=== PATIENT | male | born 1965 | race Caucasian/White ===

== ENCOUNTER 2021-04-28 10:35 | Inpatient (IN) | payer BC ==
[~2021-04-28] VITALS: Ht 182.9 cm; Wt 108.5 kg
[2021-04-28] MEDS: amLODIPine 5 MG TAB PO SCH (09:00)
--- NOTE | 2021-04-28 11:03 | REP ---
INDICATION: CHEST PAIN. COMPARISON: None. FINDINGS: The technique utilized in obtaining the radiograph has magnified the cardiac silhouette and accentuated the interstitial markings. The superior mediastinal structures are midline. The cardiac silhouette is unremarkable in size, shape, and position. The diaphragmatic surfaces of the lungs are regular, and the costophrenic angles are clear. The pulmonary peralta are clear. The imaged osseous structures are intact. IMPRESSION: There is no acute cardiopulmonary disease. <Electronically signed by Kraig Fenton > 04/28/21 1100
[2021-04-28 11:12] LABS: HEMATOCRIT 45.4 % (42.0-52.0); HEMOGLOBIN 15.7 g/dl (13.5-17.5); LYMPH % 17.4 % (24.0-44.0); MEAN CORPUSCULAR HEMOGLOBIN 31.3 pg (27.0-33.0); MEAN CORPUSCULAR HGB CONC 34.6 g/dl (32.0-36.5); MEAN CORPUSCULAR VOLUME 90.4 fl (80.0-96.0); MONO % 7.7 % (2.0-8.0); NEUTROPHILS % 72.9 % (36.0-66.0); PLATELET COUNT, AUTOMATED 213 10^3/uL (150-450); RED BLOOD COUNT 5.02 10^6/uL (4.30-6.10); WHITE BLOOD COUNT 11.6 10^3/uL (4.0-10.0)
[2021-04-28 11:13] LABS: BASO % 0.3 % (0.0-1.0); EOS # 0.2 10^3/uL (0.0-0.5); EOS % 1.4 % (0.0-3.0); MONO # 0.9 10^3/uL (0.0-0.8); NEUTROPHILS # 8.5 10^3/uL (1.5-8.5)
[2021-04-28 11:36] LABS: BLOOD UREA NITROGEN 10 MG/DL (7-18); CALCIUM LEVEL 9.7 MG/DL (8.5-10.1); CARBON DIOXIDE LEVEL 30 MEQ/L (21-32); CHLORIDE LEVEL 98 MEQ/L (98-107); CK-MB VALUE MASS 1.3 NG/ML (<3.6); CPK CREATINE PHOSPHOKINASE 51 U/L (39-308); CREATININE FOR GFR 0.89 MG/DL (0.70-1.30); GLOMERULAR FILTRATION RATE > 60.0 (>56); GLUCOSE, FASTING 235 MG/DL (70-100); MB/CK RELATIVE INDEX 2.55 (< OR =4); POTASSIUM SERUM 4.4 MEQ/L (3.5-5.1); SODIUM LEVEL 133 MEQ/L (136-145); TROPONIN I < 0.02 NG/ML (< 0.10)
[2021-04-28] MEDS ORDERED: GI COCKTAIL 50ML BTL(HYOSCYAMINE/MAALOX/LIDOCAINE VISCOUS)(1:3:1) PO ONE (13:10)
[2021-04-28 13:46] LABS: ALBUMIN 4.1 GM/DL (3.2-5.2); ALT/SGPT 26 U/L (12-78); BILIRUBIN,DIRECT 0.3 MG/DL (0.0-0.2); BILIRUBIN,TOTAL 1.1 MG/DL (0.2-1.0); LIPASE 555 U/L (73-393); TOTAL PROTEIN 7.7 GM/DL (6.4-8.2)
--- NOTE | 2021-04-28 14:35 | REP ---
INDICATION: evaluate CBD. RUQ and epigastric tenderness. COMPARISON: None. TECHNIQUE: Real-time sonographic evaluation of right upper quadrant performed. FINDINGS: The gallbladder demonstrates no evidence of intraluminal sludge or calculi, wall thickening or pericholecystic fluid. There is a 3 mm gallbladder polyp. There is no intrahepatic or extrahepatic biliary dilatation, common bile duct measures 4 mm in maximum diameter. Liver demonstrates diffuse increased echotexture compatible with diffuse fibrofatty infiltration. Pancreas is not well evaluated due to overlying bowel gas. The right kidney demonstrates no hydronephrosis, with a normal size of 12.0 cm in length. No free fluid is seen. IMPRESSION: Gallbladder polyp 3 mm. No gallstones, gallbladder wall thickening or free fluid. No biliary dilatation. Diffuse fibrofatty infiltration of the liver. <Electronically signed by Abhijeet Del Toro > 04/28/21 [id number]
[2021-04-28] MEDS ORDERED: MORPHINE 2 MG/ML 1ML VIAL (J2270) IV ONE (16:20)
[2021-04-28] MEDS ORDERED: NS 1,000 ML IV ONE (16:20)
[2021-04-28 16:30] LABS: CK-MB VALUE MASS 1.3 NG/ML (<3.6); CPK CREATINE PHOSPHOKINASE 36 U/L (39-308); MB/CK RELATIVE INDEX 3.61 (< OR =4); TROPONIN I < 0.02 NG/ML (< 0.10)
[2021-04-28] MEDS ORDERED: MORPHINE 4 MG/ML 1ML VIAL/SYRINGE (J2270) IV ONE (17:35)
[2021-04-28] MEDS ORDERED: ASPI1TAB8 PO (18:39)
[2021-04-28] MEDS ORDERED: PLAV1TAB2 PO (18:39)
[2021-04-28] MEDS ORDERED: CARV6.25 PO (18:39)
[2021-04-28] MEDS ORDERED: ATOR80TA59 PO (18:39)
[2021-04-28] MEDS ORDERED: LISI20TA33 PO (18:39)
[2021-04-28] MEDS ORDERED: METF10004 PO (18:39)
[2021-04-28] MEDS ORDERED: HOME MED LIST COMPLETE! XX SCH (18:40)
[2021-04-28 19:08] LABS: CHOLESTEROL LEVEL 121 MG/DL (<200); HDL CHOLESTEROL 54 MG/DL (>40); LDL CHOLESTEROL 45 MG/DL (<100); NON-HDL-C 67 MG/DL; TRIGLYCERIDES LEVEL 109 MG/DL (<150)
--- NOTE | 2021-04-28 19:08 | HPEPDOC ---
[facility] Medical History & Physical Date of Admission Apr 28, 2021 Date of Service: Apr 28, 2021 History and Physical CHIEF COMPLAINT: " Pain in the middle of my stomach" HISTORY OF PRESENT ILLNESS: 55-year-old male with a past medical history of coronary artery disease (s/p stents), hypertension, hyperlipidemia, and diabetes presented to the emergency department with worsening epigastric pain. He began to experience epigastric pain approximately 4 days ago that has been increasing in severity. At this junction, he rated the pain 6/10. He cannot identify any aggravating or relieving factors. It is not associated with food consumption. He has not had similar pain before. No associated hematemesis, weight loss, and appetite changes. He has never had an upper endoscopy done before. There is no associated nausea, vomiting, and changes in bowel movement. He denied any chest pain, shortness of breath, palpitations, problems with urination and bowel movements. CODE STATUS was discussed he wishes to be full code. PAST MEDICAL HISTORY: As mentioned above PAST SURGICAL HISTORY: 1. Cardiac stent SOCIAL HISTORY: Denies use of smoking, drinking, and recreational drugs. FAMILY HISTORY: Coronary disease and father. ALLERGIES: Please see below. REVIEW OF SYSTEMS: 10 point review of system was negative except for what is noted in the HPI HOME MEDICATIONS: Please see below. PHYSICAL EXAMINATION: VITAL SIGNS: Please see below. General: Lying in bed, no acute distress Head/Neck/Throat: Trachea midline, mucous membranes moist Eyes: Sclera anicteric, no erythema or discharge appreciated bilaterally Thorax: Normal respiratory effort on room air, lungs clear to auscultation bilaterally, no wheezes/rales/rhonchi Cardiovascular: Normal rate, regular rhythm, normal S1, S2; no S3, S4, rubs/gallops/murmurs Abdomen: Bowel sounds present, soft, tenderness reported with epigastric palpation, no rebound tenderness appreciated Genitourinary: No CVA tenderness, no Charles in place Musculoskeletal: Moving all extremities, no edema Skin: Warm, dry Neurologic: AAOx3, speech fluent and goal-directed, no focal deficits, grossly intact LABORATORY DATA: See below. IMAGING: Please see imaging section MICROBIOLOGY: Please see below. ASSESSMENT/PLAN: 55-year-old male presented with progressive worsening 4 days of abdominal pain. #Abdominal pain -Epigastric pain with minimally elevated lipase of 555, low suspicion pancreatitis vs peptic ulcer disease -We will continue with IV fluids. -Protonix and Carafate -Obtain H. pylori antigen stool -Return to GI if symptoms do not resolve for possible endoscopy with biopsies #Coronary artery disease -Status post stents. Continue with aspirin, clopidogrel, carvedilol, and statin therapy #Hypertension -uncontrolled at this time. Continue with lisinopril, and carvedilol. Pain may also be contributing to elevated blood pressure. #Diabetes -We will hold oral diabetic medications (Metformin). Hypoglycemic protocol, Accu-Cheks, and sliding scale. #DVT prophylaxis -Lovenox. Vital Signs Vital Signs Date Time Temp Pulse Resp B/P (MAP) Pulse Ox O2 Delivery O2 Flow Rate FiO2 04/28/21 16:46 20 04/28/21 16:02 85 96 04/28/21 16:01 183/98 (126) 04/28/21 10:36 97.8 Room Air Laboratory Data Labs 24H Laboratory Tests 2 04/28/21 11:00: Immature Granulocyte % (Auto) 0.3, Neutrophils (%) (Auto) 72.9H, Lymphocytes (%) (Auto) 17.4L, Monocytes (%) (Auto) 7.7, Eosinophils (%) (Auto) 1.4, Basophils (%) (Auto) 0.3, Neutrophils # (Auto) 8.5, Lymphocytes # (Auto) 2.0, Monocytes # (Auto) 0.9H, Eosinophils # (Auto) 0.2, Basophils # (Auto) 0.0, Nucleated Red Blood Cells % (auto) 0.0, Anion Gap 5L, Glomerular Filtration Rate > 60.0, Calcium Level 9.7, Total Bilirubin 1.1H, Direct Bilirubin 0.3H, Aspartate Amino Transf (AST/SGOT) 12, Alanine Aminotransferase (ALT/SGPT) 26, Alkaline Phosphatase 108, Total Creatine Kinase 51, Creatine Kinase MB 1.3, Creatine Kinase MB Relative Index 2.55, Troponin I < 0.02, Total Protein 7.7, Albumin 4.1, Albumin/Globulin Ratio 1.1, Lipase 555H 04/28/21 15:44: Total Creatine Kinase 36L, Creatine Kinase MB 1.3, Creatine Kinase MB Relative Index 3.61, Troponin I < 0.02 CBC/BMP Laboratory Tests 04/28/21 11:00 Home Medications Scheduled Aspirin (Aspirin EC) 81 Mg Tablet.dr, 81 MG PO DAILY Atorvastatin Calcium (Atorvastatin Calcium) 80 Mg Tablet, 80 MG PO DAILY Carvedilol (Carvedilol) 6.25 Mg Tablet, 6.25 MG PO DAILY Clopidogrel Bisulfate (Plavix) 75 Mg Tablet, 75 MG PO DAILY Lisinopril (Lisinopril) 20 Mg Tablet, 20 MG PO DAILY Metformin HCl (Metformin HCl) 1,000 Mg Tablet, 1,000 MG PO BID Allergies Coded Allergies: No Known Allergies (Unverified , 04/28/21) A-FIB/CHADSVASC A-FIB History Current/History of A-Fib/PAF?: No HARVINDER ROBISON M.D. Apr 28, 2021 18:38
[2021-04-28] MEDS ORDERED: MORPHINE 2 MG/ML 1ML VIAL (J2270) IV PRN (19:10)
[2021-04-28] MEDS ORDERED: GLUCOSE 4GM CHEW TABLET PO PRN (19:10)
[2021-04-28] MEDS ORDERED: DEXTROSE 50% 50 ML SYRINGE IV PRN (19:10)
[2021-04-28] MEDS ORDERED: GLUCAGON INJ 1MG VIAL SC PRN (19:10)
[2021-04-28] MEDS ORDERED: MORPHINE 4 MG/ML 1ML VIAL/SYRINGE (J2270) IV PRN (19:10)
[2021-04-28 19:57] LABS: RSV AMPLIFICATION NEGATIVE (NEGATIVE)
[2021-04-28] MEDS ORDERED: HumaLOG INSULIN (NovoLOG) PER UNIT SC SCH (21:00)
[2021-04-28 21:20] VITALS: BP 153/98
[2021-04-28] MEDS: NS 0.45% 1,000 ML IV SCH (22:20)
[2021-04-28] MEDS: PANTOPRAZOLE 40MG VIAL (C9113 PER 1) IV SCH (22:20)
[2021-04-28] MEDS: SUCRALFATE SUSP 1GM/10ML UD PO SCH (22:20)
[2021-04-29 05:55] VITALS: BP 162/99
[2021-04-29 06:42] LABS: HEMATOCRIT 41.7 % (42.0-52.0); HEMOGLOBIN 14.4 g/dl (13.5-17.5); MEAN CORPUSCULAR HEMOGLOBIN 31.4 pg (27.0-33.0); MEAN CORPUSCULAR HGB CONC 34.5 g/dl (32.0-36.5); MEAN CORPUSCULAR VOLUME 90.8 fl (80.0-96.0); PLATELET COUNT, AUTOMATED 185 10^3/uL (150-450); RED BLOOD COUNT 4.59 10^6/uL (4.30-6.10); WHITE BLOOD COUNT 12.9 10^3/uL (4.0-10.0)
[2021-04-29] MEDS: ACETAMINOPHEN TAB 650MG DOSE (2X325MG) PO PRN ×2 (06:44→17:00)
[2021-04-29] MEDS: NS 0.45% 1,000 ML IV SCH (06:45)
[2021-04-29 07:11] LABS: ALBUMIN 3.4 GM/DL (3.2-5.2); ALT/SGPT 22 U/L (12-78); BILIRUBIN,TOTAL 1.3 MG/DL (0.2-1.0); BLOOD UREA NITROGEN 9 MG/DL (7-18); CALCIUM LEVEL 8.9 MG/DL (8.5-10.1); CARBON DIOXIDE LEVEL 29 MEQ/L (21-32); CHLORIDE LEVEL 101 MEQ/L (98-107); CREATININE FOR GFR 0.73 MG/DL (0.70-1.30); GLOMERULAR FILTRATION RATE > 60.0 (>56); GLUCOSE, FASTING 157 MG/DL (70-100); MAGNESIUM LEVEL 2.2 MG/DL (1.8-2.4); PHOSPHORUS LEVEL 2.5 MG/DL (2.5-4.9); POTASSIUM SERUM 4.7 MEQ/L (3.5-5.1); SODIUM LEVEL 137 MEQ/L (136-145); TOTAL PROTEIN 7.1 GM/DL (6.4-8.2)
[2021-04-29] MEDS: amLODIPine 5 MG TAB PO SCH (08:22)
[2021-04-29] MEDS: PANTOPRAZOLE 40MG VIAL (C9113 PER 1) IV SCH (08:23)
[2021-04-29] MEDS: SUCRALFATE SUSP 1GM/10ML UD PO SCH ×2 (08:23→13:20)
[2021-04-29] MEDS: HumaLOG INSULIN (NovoLOG) PER UNIT SC SCH ×2 (08:25→13:21)
[2021-04-29] MEDS ORDERED: ATORVASTATIN 20 MG TAB PO SCH (09:00)
[2021-04-29] MEDS ORDERED: ENOXAPARIN 40MG/0.4ML SYRINGE (J1650 PER 10MG) SC SCH (09:00)
[2021-04-29] MEDS ORDERED: ASPIRIN 81MG ENTERIC TABLET PO SCH (09:00)
[2021-04-29] MEDS ORDERED: CLOPIDOGREL 75 MG TAB PO SCH (09:00)
[2021-04-29] MEDS ORDERED: CARVedilol 6.25 MG TAB PO SCH (09:00)
[2021-04-29 11:31] LABS: LIPASE 339 U/L (73-393)
--- NOTE | 2021-04-29 12:01 | DS.PDOC ---
Discharge Summary General Date of Admission Apr 28, 2021 at 18:34 Date of Discharge 04/29/2021 Discharge Summary DISCHARGE DIAGNOSES: 1. Dyspepsia (possible gastritis versus peptic ulcer disease) COMPLICATIONS/CHIEF COMPLAINT: Pancreatitis. HOSPITAL COURSE: Mr. Zarate, is a 55-year-old male with a past medical history of coronary artery disease, hypertension, and nnk-[id number] diabetes mellitus who presented with worsening epigastric pain. He was noted to have leukocytosis, and elevated lipase (555) upon admission. Although, his lipase was elevated it was not 3 times the upper limit of normal therefore suspicion for pancreatitis was low. However, his symptoms were consistent with possible gastritis versus peptic ulcer disease. Patient was also explained the possibility of peptic ulcer disease causing irritation to the pancreas. Once he was placed on Protonix and Carafate there was resolution of his symptoms. Considering he did not have any alarming symptoms including weight loss, and hematochezia/dark stools the need for endoscopy was not required deemed emergent during hospitalization. He was asked to continue with Protonix 6 to 8 weeks; and was given Carafate. He was exp lained he should follow-up with his primary care physician for appropriate H. pylori antigen testing as this may also be contributing to his symptoms and can possibly lead to gastric cancer. He was also explained that he can follow-up with a enrichment assistant as outpatient for endoscopy where he could undergo gastric biopsies to rule out gastric carcinoma as well as H. pylori. He was in agreement for further gastroenterology work-up to be done as outpatient. At the time of discharge, patient was tolerating his regular diet and back to his baseline. Of note, patient did have leukocytosis but this was likely reactive. There is no signs and symptoms of infectious etiology. He is to have repeat blood work done with his primary care physician. Of note, patient was started on amlodipine and lisinopril was increased for better blood pressure control. DISCHARGE MEDICATIONS: Please see below. ALLERGIES: Please see below. PHYSICAL EXAMINATION ON DISCHARGE: VITAL SIGNS: Please see below. General: Lying in bed, no acute distress Head/Neck/Throat: Trachea midline, mucous membranes moist Eyes: Sclera anicteric, no erythema or discharge appreciated bilateral Thorax: Normal respiratory effort on room air, lungs clear to auscultation bilaterally, no wheezes/rales/rhonchi Cardiovascular: Normal rate, regular rhythm, normal S1, S2; no S3, S4, rubs/gallops/murmurs Abdomen: Bowel sounds present, soft/nontender/nondistended Genitourinary: No CVA tenderness, no Charles in place Musculoskeletal: Moving all extremities, no edema Skin: Warm, dry Neurologic: AAOx3, speech fluent and goal-directed, no focal deficits, grossly intact LABORATORY DATA: Please see below. IMAGING: PORTABLE CHEST X-RAY The technique utilized in obtaining the radiograph has magnified the cardiac silhouette and accentuated the interstitial markings. The superior mediastinal structures are midline. The cardiac silhouette is unremarkable in size, shape, and position. The diaphragmatic surfaces of the lungs are regular, and the costophrenic angles are clear. The pulmonary peralta are clear. The imaged osseous structures are intact. IMPRESSION: There is no acute cardiopulmonary disease. GALLBLADDER US FINDINGS: The gallbladder demonstrates no evidence of intraluminal sludge or calculi, wall thickening or pericholecystic fluid. There is a 3 mm gallbladder polyp. There is no intrahepatic or extrahepatic biliary dilatation, common bile duct measures 4 mm in maximum diameter. Liver demonstrates diffuse increased echotexture compatible with diffuse fibrofatty infiltration. Pancreas is not well evaluated due to overlying bowel gas. The right kidney demonstrates no hydronephrosis, with a normal size of 12.0 cm in length. No free fluid is seen. IMPRESSION: Gallbladder polyp 3 mm. No gallstones, gallbladder wall thickening or free fluid. No biliary dilatation. Diffuse fibrofatty infiltration of the liver. PROGNOSIS: Good ACTIVITY: [As tolerated]. DIET: cardiac diet ITEMS TO FOLLOWUP ON ON OUTPATIENT: 1. Follow-up with his primary care physician and enrichment assistant within a week DISCHARGE CONDITION: Stable TIME SPENT ON DISCHARGE: 25 minutes. Vital Signs/I&Os Vital Signs Date Time Temp Pulse Resp B/P (MAP) Pulse Ox O2 Delivery O2 Flow Rate FiO2 04/29/21 08:22 79 162/99 04/29/21 05:55 98.2 20 98 Room Air I&O- Last 24 Hours up to 6 AM 04/29/21 06:00 Intake Total 2380 ml Output Total 1000 ml Balance 1380 ml Laboratory Data Labs 24H Laboratory Tests 2 04/28/21 15:44: Total Creatine Kinase 36L, Creatine Kinase MB 1.3, Creatine Kinase MB Relative Index 3.61, Troponin I < 0.02, Triglycerides Level 109, Total Cholesterol 121, LDL Cholesterol 45, Non-HDL Cholesterol (LDL + VLDL) 67, Total HDL Cholesterol 54, Cholesterol/HDL Ratio 2.240 04/28/21 18:50: Coronavirus (COVID-19)(PCR) NEGATIVE, Influenza Type A (RT-PCR) NEGATIVE, Influenza Type B (RT-PCR) NEGATIVE, Respiratory Syncytial Virus (PCR) NEGATIVE 04/28/21 21:36: Bedside Glucose (Misc Panel) 149H 04/29/21 06:12: Nucleated Red Blood Cells % (auto) 0.0, Anion Gap 7L, Glomerular Filtration Rate > 60.0, Calcium Level 8.9, Phosphorus Level 2.5, Magnesium Level 2.2, Total Bilirubin 1.3H, Aspartate Amino Transf (AST/SGOT) 7, Alanine Aminotransferase (ALT/SGPT) 22, Alkaline Phosphatase 95, Total Protein 7.1, Albumin 3.4, Albumin/Globulin Ratio 0.9, Lipase 339 04/29/21 11:33: Bedside Glucose (Misc Panel) 176H CBC/BMP Laboratory Tests 04/29/21 06:12 FSBS Laboratory Tests Test 04/28/21 21:36 04/29/21 11:33 Range/Units Bedside Glucose (Misc Panel) 149 176 70-105 MG/DL Discharge Medications Scheduled Amlodipine Besylate (Amlodipine Besylate) 5 Mg Tablet, 5 MG PO DAILY Aspirin (Aspirin EC) 81 Mg Tablet.dr, 81 MG PO DAILY, (Reported) Atorvastatin Calcium (Atorvastatin Calcium) 80 Mg Tablet, 80 MG PO DAILY, (Reported) Carvedilol (Carvedilol) 6.25 Mg Tablet, 6.25 MG PO DAILY, (Reported) Clopidogrel Bisulfate (Plavix) 75 Mg Tablet, 75 MG PO DAILY, (Reported) Lisinopril (Lisinopril) 40 Mg Tablet, 1 TAB PO DAILY Metformin HCl (Metformin HCl) 1,000 Mg Tablet, 1,000 MG PO BID, (Reported) Pantoprazole Sodium (Pantoprazole Sodium) 40 Mg Tablet.dr, 40 MG PO DAILY Sucralfate (Sucralfate) 1 Gm/10 Ml Oral.susp, 1 GM PO QID Allergies Coded Allergies: No Known Allergies (Unverified , 04/28/21) HARVINDER ROBISON M.D. Apr 29, 2021 11:50
[2021-04-29] MEDS ORDERED: AMLO1TAB24 PO (12:06)
[2021-04-29] MEDS ORDERED: LISI40TA4 PO (12:06)
[2021-04-29] MEDS ORDERED: PANT40TA29 PO (12:06)
[2021-04-29] MEDS ORDERED: SUCR1ORA PO (12:06)
[2021-04-29 13:20] VITALS: BP 139/90
--- NOTE | 2021-04-29 13:47 | ECGEPIP ---
[facility] - ED Test Date: 2021-04-28 Pat Name: JOCELYNE HOUGH Department: Room: - Gender: Male [facility]: ALISHA : 1965 Requested By: MANA Garcia Order Number: [id number] Reading MD: Brittani Deluna Measurements Intervals [place] Rate: 81 P: 13 [place]: 154 QRS: 2 QRSD: 90 T: 15 QT: 362 QTc: 420 Interpretive Statements Normal sinus rhythm Anteroseptal infarct , age undetermined NSTTW abnormalities No prior Electronically Signed on 04-29-2021 13:47:55 EDT by Brittani Deluna
--- NOTE | 2021-04-29 13:52 | ECGEPIP ---
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
[2021-04-30] MEDS ORDERED: PANTOPRAZOLE 40MG VIAL (C9113 PER 1) IV SCH (09:00)
[2021-04-30] MEDS ORDERED: lisinopriL 40 MG TAB PO SCH (09:00)
== END 2021-04-29 17:40 | disposition home or self-care (01) | DRG 241 ==
LOC: M ED 10:35 → M ED INP 18:34 → ENRESERV 19:33 → M MS5PR 21:20
PROVIDERS: ADMIT Internal Medicine; ATTEND Internal Medicine
DX: K29.70 Gastritis, unspecified, without bleeding (principal); K27.9 Peptic ulcer, site unspecified, unspecified as acute or chronic, without hemorrhage or perforation; E11.9 Type 2 diabetes mellitus without complications; I25.10 Atherosclerotic heart disease of native coronary artery without angina pectoris; I10 Essential (primary) hypertension; Z79.82 Long term (current) use of aspirin; Z79.899 Other long term (current) drug therapy; E78.5 Hyperlipidemia, unspecified; Z95.2 Presence of prosthetic heart valve

== ENCOUNTER → 2022-01-09 | Outpatient (CLI) | payer BC ==
[~2022-01-09] MED LIST: AMLO1TAB24 PO; ASPI1TAB8 PO; ATOR80TA59 PO; CARV6.25 PO; LISI20TA33 PO; LISI40TA4 PO; METF10004 PO; PANT40TA29 PO; PLAV1TAB2 PO; SUCR1ORA PO
[2022-01-09 11:31] LABS: BLOOD UREA NITROGEN 9 MG/DL (7-18); CALCIUM LEVEL 8.9 MG/DL (8.5-10.1); CARBON DIOXIDE LEVEL 33 MEQ/L (21-32); CHLORIDE LEVEL 104 MEQ/L (98-107); CHOLESTEROL LEVEL 118 MG/DL (<200); CHOLESTEROL RISK RATIO 2.565 (<5); CREATININE FOR GFR 0.87 MG/DL (0.70-1.30); GLOMERULAR FILTRATION RATE > 60.0 (>56); GLUCOSE, FASTING 161 MG/DL (70-100); HDL CHOLESTEROL 46 MG/DL (>40); LDL CHOLESTEROL 45 MG/DL (<100); NON-HDL-C 72 MG/DL; POTASSIUM SERUM 5.2 MEQ/L (3.5-5.1); SODIUM LEVEL 139 MEQ/L (136-145); TRIGLYCERIDES LEVEL 133 MG/DL (<150)
[2022-01-09 12:20] LABS: MALB URINE SIEMENS 7.6 MG/L; MAU/CREAT RATIO 6.3 MCG/MG (0.0-30.0)
[2022-01-09 18:01] LABS: HEMOGLOBIN A1c 7.7 %
== END ==
LOC: M PLALAB 08:23
PROVIDERS: ATTEND Student in an Organized Health Care Education/Training Program
DX: E11.40 Type 2 diabetes mellitus with diabetic neuropathy, unspecified (principal)

== ENCOUNTER → 2022-05-06 | Outpatient (CLI) | payer BC ==
[2022-05-06 10:37] LABS: BASO % 0.4 % (0.0-1.0); EOS # 0.2 10^3/uL (0.0-0.5); EOS % 2.1 % (0.0-3.0); HEMATOCRIT 44.7 % (42.0-52.0); HEMATOCRIT 45.8 % (42.0-52.0); HEMOGLOBIN 15.4 g/dl (13.5-17.5); LYMPH % 27.9 % (24.0-44.0); MEAN CORPUSCULAR HEMOGLOBIN 32.3 pg (27.0-33.0); MEAN CORPUSCULAR HGB CONC 34.5 g/dl (32.0-36.5); MEAN CORPUSCULAR VOLUME 93.7 fl (80.0-96.0); MONO # 0.6 10^3/uL (0.0-0.8); MONO % 8.6 % (2.0-8.0); NEUTROPHILS # 4.3 10^3/uL (1.5-8.5); NEUTROPHILS % 60.9 % (36.0-66.0); PLATELET COUNT, AUTOMATED 188 10^3/uL (150-450); RED BLOOD COUNT 4.77 10^6/uL (4.30-6.10); WHITE BLOOD COUNT 7.1 10^3/uL (4.0-10.0)
[2022-05-06 11:20] LABS: MALB URINE SIEMENS 15.6 MG/L
[2022-05-06 11:25] LABS: ALT/SGPT 36 U/L (12-78); BLOOD UREA NITROGEN 15 MG/DL (7-18); CARBON DIOXIDE LEVEL 31 MEQ/L (21-32); CHLORIDE LEVEL 104 MEQ/L (98-107); CHOLESTEROL LEVEL 116 MG/DL (<200); CREATININE FOR GFR 0.85 MG/DL (0.70-1.30); GLOMERULAR FILTRATION RATE > 60.0 (>56); GLUCOSE, FASTING 143 MG/DL (70-100); HDL CHOLESTEROL 41 MG/DL (>40); NON-HDL-C 75 MG/DL; POTASSIUM SERUM 4.3 MEQ/L (3.5-5.1); SODIUM LEVEL 139 MEQ/L (136-145); TRIGLYCERIDES LEVEL 105 MG/DL (<150)
[2022-05-06 11:26] LABS: ALBUMIN 3.9 GM/DL (3.2-5.2); CHOLESTEROL RISK RATIO 2.829 (<5); FREE T4 1.15 NG/DL (0.76-1.46); LDL CHOLESTEROL 54 MG/DL (<100)
[2022-05-06 12:05] LABS: VITAMIN B12 LEVEL 308 PG/ML (247-911)
== END ==
LOC: M PLALAB 08:46
PROVIDERS: ATTEND Student in an Organized Health Care Education/Training Program
DX: I10 Essential (primary) hypertension (principal); E11.40 Type 2 diabetes mellitus with diabetic neuropathy, unspecified; R20.2 Paresthesia of skin

== ENCOUNTER → 2022-05-18 | Outpatient (CLI) | payer BC | LOC: M SLEEP HO 12:18 | PROVIDERS: ATTEND Student in an Organized Health Care Education/Training Program | DX: R06.83 Snoring (principal) ==

== ENCOUNTER → 2022-12-24 | Outpatient (CLI) | payer BC ==
[~2022-12-24] MED LIST changes: +CLOP75TA99 PO; -PLAV1TAB2 PO
[2022-12-24 14:53] LABS: ALBUMIN 4.2 G/DL (3.2-5.2); ALKALINE PHOSPHATASE 94 U/L (46-116); ALT/SGPT 38 U/L (7.0-40); AST/SGOT 26 U/L (<34); BILIRUBIN,TOTAL 1.3 MG/DL (0.3-1.2); BLOOD UREA NITROGEN 15 MG/DL (9-23); CALCIUM LEVEL 9.7 MG/DL (8.5-10.1); CARBON DIOXIDE LEVEL 32 MMOL/L (20-31); CHLORIDE LEVEL 102 MMOL/L (98-107); CHOLESTEROL LEVEL 129 MG/DL (<200); CHOLESTEROL RISK RATIO 2.72 (<5); CREATININE FOR GFR 0.77 MG/DL (0.70-1.30); GLOMERULAR FILTRATION RATE > 60.0 (>56); GLUCOSE, FASTING 125 MG/DL (60-100); HDL CHOLESTEROL 47.3 MG/DL (>40); LDL CHOLESTEROL 63.5 MG/DL (<100); NON-HDL-C 81.7 MG/DL; POTASSIUM SERUM 4.6 MMOL/L (3.5-5.1); SODIUM LEVEL 138 MMOL/L (136-145); TRIGLYCERIDES LEVEL 91 MG/DL (<150)
[2022-12-24 15:01] LABS: BASO % 0.3 % (0.0-1.0); EOS # 0.2 10^3/uL (0.0-0.5); EOS % 2.3 % (0.0-3.0); HEMATOCRIT 49.2 % (42.0-52.0); HEMOGLOBIN 16.5 g/dl (13.5-17.5); LYMPH # 2.2 10^3/uL (1.5-5.0); LYMPH % 33.2 % (24.0-44.0); MEAN CORPUSCULAR HEMOGLOBIN 31.4 pg (27.0-33.0); MEAN CORPUSCULAR HGB CONC 33.5 g/dl (32.0-36.5); MEAN CORPUSCULAR VOLUME 93.7 fl (80.0-96.0); MONO # 0.6 10^3/uL (0.0-0.8); MONO % 9.4 % (2.0-8.0); NEUTROPHILS # 3.6 10^3/uL (1.5-8.5); NEUTROPHILS % 54.6 % (36.0-66.0); PLATELET COUNT, AUTOMATED 209 10^3/uL (150-450); RED BLOOD COUNT 5.25 10^6/uL (4.30-6.10); WHITE BLOOD COUNT 6.5 10^3/uL (4.0-10.0)
[2022-12-24 15:14] LABS: HEMOGLOBIN A1c 7.7 % (4.0-6.0)
[2022-12-24 15:37] LABS: CREATININE, URINE 64.5 MG/DL; MALB URINE SIEMENS < 3.0 MG/L; MAU/CREAT RATIO 4.6 MCG/MG (0.0-30.0)
== END ==
LOC: M PLALAB 11:15
PROVIDERS: ATTEND Student in an Organized Health Care Education/Training Program
DX: E11.40 Type 2 diabetes mellitus with diabetic neuropathy, unspecified (principal); I10 Essential (primary) hypertension; Z13.220 Encounter for screening for lipoid disorders

== ENCOUNTER → 2023-01-21 | Outpatient (CLI) | payer BC | LOC: M RAD 09:02 | PROVIDERS: ATTEND Internal Medicine Critical Care Medicine | DX: Z12.2 Encounter for screening for malignant neoplasm of respiratory organs (principal); Z87.891 Personal history of nicotine dependence; R91.1 Solitary pulmonary nodule; I70.0 Atherosclerosis of aorta; I25.10 Atherosclerotic heart disease of native coronary artery without angina pectoris; I51.7 Cardiomegaly ==

== ENCOUNTER → 2023-02-24 | Outpatient (CLI) | payer BC | LOC: M CARPUL 09:21 | PROVIDERS: ATTEND Internal Medicine Critical Care Medicine | DX: I27.20 Pulmonary hypertension, unspecified (principal) ==

== ENCOUNTER 2023-04-07 09:48 | Day surgery (SDC) | payer BC ==
[~2023-04-07] VITALS: Ht 182.9 cm; Wt 103.9 kg
[~2023-04-07 09:48] MED LIST changes: +METF750T36 PO; +NS 1,000 ML IV ONE; +OCUVTAB8 PO; +STEG5TAB PO
[2023-04-07] MEDS ORDERED: propofoL 200 MG/20 ML VIAL As Ordered ONE ×3 (09:58→11:14)
[2023-04-07] MEDS ORDERED: LIDOCAINE 2% 100MG/5ML SDV (FOR ANES.) As Ordered ONE (10:05)
[2023-04-07 12:02] VITALS: BP 147/83; TEMP 96.4; O2SAT 98
== END 2023-04-07 12:10 | disposition home or self-care (01) ==
LOC: M OPP 09:48
PROVIDERS: ATTEND Surgery
DX: Z12.11 Encounter for screening for malignant neoplasm of colon (principal); Z86.010 Personal history of colon polyps; K64.0 First degree hemorrhoids; Z87.891 Personal history of nicotine dependence; Z79.02 Long term (current) use of antithrombotics/antiplatelets; Z79.82 Long term (current) use of aspirin; Z79.84 Long term (current) use of oral hypoglycemic drugs; Z79.899 Other long term (current) drug therapy

== ENCOUNTER → 2023-05-12 | Outpatient (CLI) | payer BC ==
[~2023-05-12] MED LIST changes: -NS 1,000 ML IV ONE
[2023-05-12 13:41] LABS: BASO % 0.3 % (0.0-1.0); EOS # 0.2 10^3/uL (0.0-0.5); HEMATOCRIT 45.5 % (42.0-52.0); HEMATOCRIT 45.7 % (42.0-52.0); HEMOGLOBIN 15.6 g/dl (13.5-17.5); LYMPH # 2.3 10^3/uL (1.5-5.0); MEAN CORPUSCULAR HGB CONC 34.1 g/dl (32.0-36.5); MEAN CORPUSCULAR VOLUME 93.6 fl (80.0-96.0); MONO # 0.6 10^3/uL (0.0-0.8); MONO % 10.6 % (2.0-8.0); NEUTROPHILS # 2.9 10^3/uL (1.5-8.5); NEUTROPHILS % 47.9 % (36.0-66.0); PLATELET COUNT, AUTOMATED 175 10^3/uL (150-450); RED BLOOD COUNT 4.88 10^6/uL (4.30-6.10)
[2023-05-12 14:04] LABS: HEMOGLOBIN A1c 7.6 % (4.0-6.0)
[2023-05-12 14:08] LABS: CREATININE, URINE 101.7 MG/DL; MAU/CREAT RATIO 5.8 MCG/MG (0.0-30.0)
[2023-05-12 14:14] LABS: ALBUMIN 3.9 G/DL (3.2-5.2); ALKALINE PHOSPHATASE 111 U/L (46-116); ALT/SGPT 39 U/L (7.0-40); AST/SGOT 21 U/L (<34); BILIRUBIN,TOTAL 0.8 MG/DL (0.3-1.2); BLOOD UREA NITROGEN 17 MG/DL (9-23); CALCIUM LEVEL 9.1 MG/DL (8.5-10.1); CARBON DIOXIDE LEVEL 32 MMOL/L (20-31); CHLORIDE LEVEL 107 MMOL/L (98-107); CREATININE FOR GFR 0.78 MG/DL (0.70-1.30); GLOMERULAR FILTRATION RATE > 60.0 (>56); GLUCOSE, FASTING 151 MG/DL (60-100); MAGNESIUM LEVEL 2.1 MG/DL (1.8-2.4); SODIUM LEVEL 141 MMOL/L (136-145); TOTAL PROTEIN 6.7 G/DL (5.7-8.2)
[2023-05-12 14:16] LABS: THYROID STIMULATING HORMONE 1.069 uIU/ML (0.55-4.78); VITAMIN B12 LEVEL 335 PG/ML (211-911)
== END ==
LOC: M PLALAB 08:56
PROVIDERS: ATTEND Student in an Organized Health Care Education/Training Program
DX: E11.40 Type 2 diabetes mellitus with diabetic neuropathy, unspecified (principal); I10 Essential (primary) hypertension; R20.2 Paresthesia of skin

== ENCOUNTER → 2023-05-12 | Outpatient (CLI) | payer BC | LOC: M PLAIMG 07:58 | PROVIDERS: ATTEND Internal Medicine Critical Care Medicine | DX: R91.1 Solitary pulmonary nodule (principal) ==

== ENCOUNTER → 2023-12-03 | Outpatient (CLI) | payer OTHER ==
[2023-12-03 13:03] LABS: BASO % 0.3 % (0.0-1.0); EOS # 0.2 10^3/uL (0.0-0.5); EOS % 2.4 % (0.0-3.0); HEMATOCRIT 47.2 % (42.0-52.0); HEMATOCRIT 47.5 % (42.0-52.0); HEMOGLOBIN 16.4 g/dl (13.5-17.5); LYMPH # 2.2 10^3/uL (1.5-5.0); LYMPH % 32.3 % (24.0-44.0); MEAN CORPUSCULAR HEMOGLOBIN 31.6 pg (27.0-33.0); MEAN CORPUSCULAR HGB CONC 34.5 g/dl (32.0-36.5); MEAN CORPUSCULAR VOLUME 91.5 fl (80.0-96.0); MONO # 0.6 10^3/uL (0.0-0.8); MONO % 9.2 % (2.0-8.0); NEUTROPHILS # 3.7 10^3/uL (1.5-8.5); NEUTROPHILS % 55.6 % (36.0-66.0); PLATELET COUNT, AUTOMATED 195 10^3/uL (150-450); RED BLOOD COUNT 5.19 10^6/uL (4.30-6.10); WHITE BLOOD COUNT 6.7 10^3/uL (4.0-10.0)
[2023-12-03 13:11] LABS: ERYTHROCYTE SEDIMENTATION RATE 14 mm/hr (0-20)
[2023-12-03 13:28] LABS: MALB URINE SIEMENS < 3.0 MG/L; MAU/CREAT RATIO 5.6 MCG/MG (0.0-30.0)
[2023-12-03 13:50] LABS: URIC ACID 4.3 MG/DL (3.7-9.2)
[2023-12-03 13:52] LABS: C REACTIVE PROTEIN QUANTITATIV < 0.40 MG/DL (<1.0)
[2023-12-03 13:54] LABS: ALKALINE PHOSPHATASE 123 U/L (46-116); ALT/SGPT 27 U/L (7.0-40); AST/SGOT 18 U/L (<34); BILIRUBIN,TOTAL 0.9 MG/DL (0.3-1.2); BLOOD UREA NITROGEN 15 MG/DL (9-23); CALCIUM LEVEL 9.2 MG/DL (8.5-10.1); CARBON DIOXIDE LEVEL 32 MMOL/L (20-31); CHLORIDE LEVEL 102 MMOL/L (98-107); CHOLESTEROL LEVEL 111 MG/DL (<200); CHOLESTEROL RISK RATIO 2.94 (<5); CREATININE FOR GFR 0.82 MG/DL (0.70-1.30); GLOMERULAR FILTRATION RATE > 60.0 (>56); GLUCOSE, FASTING 140 MG/DL (60-100); HDL CHOLESTEROL 37.7 MG/DL (>40); LDL CHOLESTEROL 48.1 MG/DL (<100); NON-HDL-C 73.3 MG/DL; POTASSIUM SERUM 4.9 MMOL/L (3.5-5.1); RHEUMATOID FACTOR QUANT < 3.5 IU/ML (<14); SODIUM LEVEL 138 MMOL/L (136-145); TESTOSTERONE 404 NG/DL (241-827); THYROID STIMULATING HORMONE 1.334 uIU/ML (0.55-4.78); TOTAL PROTEIN 6.7 G/DL (5.7-8.2); TRIGLYCERIDES LEVEL 126 MG/DL (<150)
[2023-12-03 13:55] LABS: FREE T4 1.08 NG/DL (0.89-1.76)
[2023-12-03 13:56] LABS: VITAMIN B12 LEVEL 400 PG/ML (211-911)
[2023-12-03 15:54] LABS: CORTISOL AM 8.1 UG/DL (4.3-22.4)
== END ==
LOC: M PLALAB 09:03
PROVIDERS: ATTEND Student in an Organized Health Care Education/Training Program
DX: M25.511 Pain in right shoulder (principal); I10 Essential (primary) hypertension; E11.40 Type 2 diabetes mellitus with diabetic neuropathy, unspecified; R20.2 Paresthesia of skin; R68.82 Decreased libido

== ENCOUNTER → 2024-05-15 | Outpatient (CLI) | payer OTHER | LOC: M CARPUL 08:47 | PROVIDERS: ATTEND Internal Medicine Critical Care Medicine | DX: R91.1 Solitary pulmonary nodule (principal); I27.20 Pulmonary hypertension, unspecified ==

== ENCOUNTER → 2024-05-22 | Outpatient (CLI) | payer OTHER ==
[2024-05-22 15:51] LABS: ALBUMIN 4.1 G/DL (3.2-5.2); ALKALINE PHOSPHATASE 124 U/L (46-116); ALT/SGPT 28 U/L (7.0-40); AST/SGOT 12 U/L (<34); BILIRUBIN,TOTAL 1.1 MG/DL (0.3-1.2); BLOOD UREA NITROGEN 14 MG/DL (9-23); CALCIUM LEVEL 9.9 MG/DL (8.5-10.1); CARBON DIOXIDE LEVEL 32 MMOL/L (20-31); CHLORIDE LEVEL 104 MMOL/L (98-107); CREATININE FOR GFR 0.84 MG/DL (0.70-1.30); GLOMERULAR FILTRATION RATE > 60.0 (>56); GLUCOSE, FASTING 121 MG/DL (60-100); POTASSIUM SERUM 5.1 MMOL/L (3.5-5.1); SODIUM LEVEL 139 MMOL/L (136-145); TOTAL PROTEIN 7.1 G/DL (5.7-8.2)
[2024-05-22 16:12] LABS: HEMOGLOBIN A1c 6.8 % (4.0-6.0)
== END ==
LOC: M PLALAB 10:03
PROVIDERS: ATTEND Family Medicine
DX: E11.40 Type 2 diabetes mellitus with diabetic neuropathy, unspecified (principal); I10 Essential (primary) hypertension

== ENCOUNTER → 2024-12-26 | Outpatient (CLI) | payer OTHER ==
[2024-12-26 10:00] LABS: BASO % 0.3 % (0.0-1.0); EOS # 0.1 10^3/uL (0.0-0.5); EOS % 1.7 % (0.0-3.0); HEMATOCRIT 49.8 % (42.0-52.0); HEMOGLOBIN 16.8 g/dl (13.5-17.5); LYMPH # 2.1 10^3/uL (1.5-5.0); LYMPH % 27.7 % (24.0-44.0); MEAN CORPUSCULAR HEMOGLOBIN 31.6 pg (27.0-33.0); MEAN CORPUSCULAR HGB CONC 33.7 g/dl (32.0-36.5); MEAN CORPUSCULAR VOLUME 93.8 fl (80.0-96.0); MONO # 0.6 10^3/uL (0.0-0.8); MONO % 7.8 % (2.0-8.0); NEUTROPHILS # 4.7 10^3/uL (1.5-8.5); NEUTROPHILS % 62.2 % (36.0-66.0); PLATELET COUNT, AUTOMATED 191 10^3/uL (150-450); RED BLOOD COUNT 5.31 10^6/uL (4.30-6.10); WHITE BLOOD COUNT 7.6 10^3/uL (4.0-10.0)
[2024-12-26 10:13] LABS: HEMOGLOBIN A1c 6.9 % (4.0-6.0)
[2024-12-26 10:23] LABS: CREATININE, URINE 122.4 MG/DL; PSA SCREENING 1.18 NG/ML (< 4.00)
[2024-12-26 10:24] LABS: MALB URINE SIEMENS < 3.0 MG/L
[2024-12-26 10:25] LABS: ALBUMIN 4.1 G/DL (3.2-5.2); ALKALINE PHOSPHATASE 117 U/L (40-129); ALT/SGPT 26 U/L (7.0-40); AST/SGOT 14 U/L (<34); BLOOD UREA NITROGEN 12 MG/DL (9-23); CALCIUM LEVEL 9.3 MG/DL (8.3-10.6); CARBON DIOXIDE LEVEL 32 MMOL/L (20-31); CHLORIDE LEVEL 103 MMOL/L (98-107); CHOLESTEROL LEVEL 105 MG/DL (<200); CHOLESTEROL RISK RATIO 2.59 (<5); CREATININE FOR GFR 0.84 MG/DL (0.70-1.30); GLOMERULAR FILTRATION RATE > 90.0 (>49); GLUCOSE, FASTING 138 MG/DL (74-106); HDL CHOLESTEROL 40.4 MG/DL (>40); LDL CHOLESTEROL 40.8 MG/DL (<100); NON-HDL-C 64.6 MG/DL; POTASSIUM SERUM 5.1 MMOL/L (3.5-5.1); SODIUM LEVEL 141 MMOL/L (136-145); TOTAL PROTEIN 7.2 G/DL (5.7-8.2); TRIGLYCERIDES LEVEL 119 MG/DL (<150)
[2024-12-26 10:26] LABS: VITAMIN B12 LEVEL 424 PG/ML (211-911)
== END ==
LOC: M PLALAB 08:14
PROVIDERS: ATTEND Student in an Organized Health Care Education/Training Program
DX: Z00.00 Encounter for general adult medical examination without abnormal findings (principal); E11.40 Type 2 diabetes mellitus with diabetic neuropathy, unspecified; Z12.5 Encounter for screening for malignant neoplasm of prostate

== ENCOUNTER → 2025-05-10 | Outpatient (CLI) | payer OTHER ==
[~2025-05-10] MED LIST changes: +LISI40TA10 PO; -LISI40TA4 PO
== END ==
LOC: M RAD 10:56
PROVIDERS: ATTEND Family Medicine
DX: F17.211 Nicotine dependence, cigarettes, in remission (principal); R91.1 Solitary pulmonary nodule

== ENCOUNTER → 2025-05-29 | Outpatient (CLI) | payer OTHER | LOC: M PLAIMG 07:52 | PROVIDERS: ATTEND Family Medicine | DX: R91.1 Solitary pulmonary nodule (principal); F17.211 Nicotine dependence, cigarettes, in remission ==